=== PATIENT | male | born 1945 | race Caucasian/White ===

== ENCOUNTER 2016-09-27 18:24 | Emergency (ER) | payer MEDICARE ==
[2016-09-27] MEDS ORDERED: Sodium Chloride 0.9% 1,000 ML ONE ×2 (19:08→20:40)
[2016-09-27] MEDS ORDERED: HYDROcodone/Acetaminophen 5/325 mg Tablet ONE (19:15)
[2016-09-27 19:18] LABS: #Basophils 0.2 thou/uL (0.0-0.2); #Eosinphils 0.4 thou/uL (0.0-0.7); #Lymphocytes 2.6 thou/uL (1.20-3.40); #Neutrophils 11.6 thou/uL (1.40-6.50); %Basophils 1.1 % (0.0-1.0); %Eosinophils 2.3 % (0.0-10.0); %Lymphocytes 16.7 % (21.0-51.0); %Monocytes 6.1 % (0.0-10.0); Hematocrit 46.4 % (42.0-52.0); Mean Platelet Volume 8.9 fL (7.4-10.4); White Blood Cell (WBC) Count 15.7 thou/uL (4.8-10.8)
[2016-09-27 19:34] LABS: ALT (SGPT) 51 U/L (0-55); AST (SGOT) 28 U/L (5-34); Alkaline Phosphatase 131 U/L (40-150); Anion Gap 17 mmol/L (10-20); BUN (Urea Nitrogen) 30 mg/dL (8.4-25.7); Bilirubin, Total 1.6 mg/dL (0.2-1.2); Calc. Creatinine Clearance 0 mL/min (70-130); Calcium 9.3 mg/dL (7.8-10.44); Carbon Dioxide 25 mmol/L (23-31); Chloride 89 mmol/L (98-107); Estimated GFR-MDRD 49; Globulin 2.9 g/dL (2.4-3.5); Protein, Total 6.8 g/dL (5.8-8.1)
[2016-09-27] MEDS ORDERED: diphenhydrAMINE HCl 25 MG CAP ONE (20:10)
[2016-09-27] MEDS ORDERED: diphenhydrAMINE HCl 50 MG/ML 1 ML VIAL ONE (20:11)
--- NOTE | 2016-09-27 20:21 | RAD ---
FRONTAL VIEW CHEST 09/27/16 COMPARISON: 08/06/16 INDICATION: Weakness and nausea. FINDINGS: Chest is stable appearing to prior exam without new consolidation or effusion. IMPRESSION: Stable exam. POS: [facility]
--- NOTE | 2016-09-27 20:28 | CT ---
HEAD CT NONCONTRAST 09/27/16 COMPARISON: 08/06/16 INDICATION: Weakness and nausea. FINDINGS: There is no intracranial hemorrhage, midline shift, or ventriculomegaly. Minimal chronic microvascul ar ischemic disease is redemonstrated. Exam is stable appearing to 08/06/16. IMPRESSION: No acute intracranial abnormalities. POS: [facility]
--- NOTE | 2016-09-27 23:08 | ERRECORD ---
[facility] EMERGENCY RECORD HPI CVA (19:08 BPIC) NIHSS: CVA assessment findings: Level of consciousness: alert, keenly responsive (0), Questions: answers both questions correctly (0), Commands: performs both tasks correctly (0), Best gaze: normal (0), Visual: no visual loss (0), Facial palsy: normal symmetrical movement (0), Motor Left Arm: no drift, arm stays 90/45 degrees for full 10 seconds (0), Motor Right Arm: no drift, arm stays 90/45 degrees for full 10 seconds (0), Motor left leg: no drift, leg stays at 30 degrees for full five seconds (0), Motor right leg: no drift, leg stays at 30 degrees for full five seconds (0), Limb ataxia absent (0), Sensory: normal, no sensory loss (0), Best language: no aphasia; normal (0), Dysarthria: normal (0), Extinction and Inattention: normal (0), Total score 0. HPI WEAK-DIZZY (19:06 BPIC) CHIEF COMPLAINT: Patient presents for evaluation of weakness, Patient presents for evaluation of dizziness. HISTORIAN: History provided by patient, pt with history of Diabetes Insipidus who has been feeling weak and dizzy over the past few weeks. His states taht he has not been eating or drinking as much as usual and is on a salt restricted diet. Additionally, he was started back on his BP meds today and has had low bp throughout the day. because of this, he has had a hard time getting around the house, and he has had increase in his chronic back pain because he has not been given his regular [place]. He also states that his vision seemed darker than usual but was not blurry at all. ROS (19:10 BPIC) CONSTITUTIONAL: Negative constitutional review of systems, Historian denies chills, denies fever. EYES: Negative eye review of systems. ENT: Negative ears, nose, throat review of systems. CARDIOVASCULAR: Negative cardiovascular review of systems, Historian denies chest pain, denies palpitations. RESPIRATORY: Negative respiratory review of systems, Historian denies cough, denies shortness of breath. GI: Negative gastrointestinal review of systems, Historian denies abdominal pain, denies constipation, denies diarrhea. MUSCULOSKELETAL: Negative musculoskeletal review of systems. SKIN: Negative skin review of systems. NEUROLOGIC: Historian reports dizziness, denies focal weakness, denies sensory changes, denies speech changes. ENDOCRINE: Negative endocrine review of systems. HEMO/LYMPHATIC: Normal hematologic/lymphatic system review. PSYCHIATRIC: Negative psychiatric review of systems. NOTES: All other ROS is negative except as listed in HPI. PAST MEDICAL HISTORY &a-1R&a+25V*p+0X*a6641T*c202B*c15G*c2P*p-0X&a-25V&a+1R Name: Brady Silva : 1945 M71 MedRec: [id number] AcctNum: [id number] Prepared: Suni Sep 28, 2016 03:39 by Interface Page 1 of 6 pMD [facility] EMERGENCY RECORD MEDICAL HISTORY: Flu vaccine up to date, Tetanus immunization up to date, Pneumococcal vaccine up to date, Notes: A-FIB, LT AND RT FOOT FX, history of diabetes, Type II, includes history of hyperlipidemia, high cholesterol, history of hypertension, which has been treated, Patient is compliant, pulmonary disease, chronic obstructive pulmonary disease.STATES HAS GOUT. No past medical history. chronic pain, back injuries, empyema, dementia. (18:44 EPIE) MALE SURGICAL HISTORY: heart ablation, orthopedic surgery, RIGHT HAND AND LEFT FOOT, CERVICAL SPINE SX, LUMBAR SX, LT KNEE, RT SHOULDER SX x2, pacemaker LUNG SX. Left Shoulder surgery X 3. and left elbow. (18:44 EPIE) PSYCHIATRIC HISTORY: Dementia, depression. (18:44 EPIE) SOCIAL HISTORY: Patient drinks every day, more than 10 drinks per day, Alcohol history notes: quit more than 20 years ago, Patient denies drug use, Patient is a former tobacco user, smoked cigarettes, Patient quit smoking more than 10 years ago, Tobacco history notes: 3 pack a day smoker for 25-30 years. (18:44 EPIE) FAMILY HISTORY: Family history is non-contributory to this case. (18:44 EPIE) NOTES: I have reviewed and agree with the PMH/PSxH/FamHx/SocHx obtained by the nurse. (19:10 BPIC) KNOWN ALLERGIES allopurinol: Source: Patient alprazolam (Unconfirmed) amlodipine besylate (Unconfirmed) carisoprodol (Unconfirmed) Cephalexin Monohydrate (Unconfirmed) diazepam (Unconfirmed) haloperidol (Unconfirmed) haloperidol lactate (Unconfirmed) Keflex nefazodone HCl (Unconfirmed) NSAIDS (Non-Steroidal Anti-Inflamma (Unconfirmed) NSAIDS (Non-Steroidal Anti-Inflammatory Drug): - GI Bleeds quetiapine fumarate (Unconfirmed) risperidone (Unconfirmed) Sulindac (Unconfirmed) Valium Oral: - HALLUCINATIONS Xanax: - HALLUCINATIONS CURRENT MEDICATIONS PriLOSEC: CAPSULE,DELAYED RELEASE (ENTERIC COATED) : Strength - 40 mg : ORAL Patient Dose: 1 tab(s) Oral once a day. [facility] K-Dur: TABLET, EXT RELEASE, PARTICLES/CRYSTALS : Strength - 20 mEq : ORAL &a-1R&a+25V*p+0X*a6316S*c202B*c15G*c2P*p-0X&a-25V&a+1R Name: Brady Silva : 1945 M71 MedRec: [id number] AcctNum: [id number] Prepared: [facility] Sep 28, 2016 03:39 by Interface Page 2 of 6 pMD [facility] EMERGENCY RECORD Patient Dose: 20 mEq Oral once a day (in the morning). (19:21 [facility]) ferrous sulfate: TABLET : Strength - 325 mg (65 mg iron) : ORAL Patient Dose: UNK Oral 2 times a day. (19:22 [facility]) digoxin: TABLET : Strength - 250 mcg : ORAL Patient Dose: 0.25 mg Oral See Notes.Takes 1 tab on even days and 1/2 tab on odd days. (19:27 [facility]) fludrocortisone: TABLET : Strength - 0.1 mg : ORAL Patient Dose: 0.1 mg Oral once a day (in the morning). (19:28 [facility]) amLODIPine: TABLET : Strength - 5 mg : ORAL Patient Dose: 5 mg Oral once a day (in the morning).STOPED TAKING FOR APPROX 6 WEEKS DUE TO DI DX. STARTED AGAIN TODAY 09/27/16. (19:29 [facility]) colchicine: TABLET : Strength - 0.6 mg : ORAL Patient Dose: 1 tab(s) Oral once a day (in the morning). (19:29 [facility]) melatonin: CAPSULE : Strength - 10 mg : ORAL Patient Dose: 10 mg Oral once a day (at bedtime). (19:30 [facility]) Mirapex: TABLET : Strength - 1 mg : ORAL Patient Dose: 1 mg Oral once a day (at bedtime). (19:31 [facility]) lisinopril: TABLET : Strength - 40 mg : ORAL Patient Dose: 40 mg Oral once a day (in the morning).STOPED TAKING FOR APPROX 6 WEEKS DUE TO DI DX. STARTED AGAIN TODAY 09/27/16. (19:31 [facility]) meTOPROLOL succinate: TABLET, EXTENDED RELEASE 24 HR : Strength - 25 mg : ORAL Patient Dose: 25 mg Oral once a day (in the morning). (19:31 [facility]) hydrochlorothiazide: TABLET : Strength - 25 mg : ORAL Patient Dose: 25 mg Oral 2 times a day. (19:32 [facility]) Benadryl: CAPSULE : Strength - 25 mg : ORAL Patient Dose: 25 mg Oral once a day.AT BEDTIME PRN FOR ANXIETY AND SLEEP. (19:33 [facility]) latanoprost: DROPS : Strength - 0.005 % : OPHTHALMIC Patient Dose: 1 Drps Eyes Both once a day (at bedtime). (19:34 [facility]) &a-1R&a+25V*p+0X*o6338G*c202B*c15G*c2P*p-0X&a-25V&a+1R Name: Brady Silva : 1945 M71 MedRec: [id number] AcctNum: [id number] Prepared: Suni Sep 28, 2016 03:39 by Interface Page 3 of 6 pMD [facility] EMERGENCY RECORD Simbrinza: SUSPENSION, DROPS(FINAL DOSAGE FORM)(ML) : Strength - 1 %-0.2 % : OPHTHALMIC Patient Dose: 1 Drps Eyes Both once a day (at bedtime). (19:34 [facility]) FML Forte: SUSPENSION, DROPS(FINAL DOSAGE FORM)(ML) : Strength - 0.25 % : OPHTHALMIC Patient Dose: 1 Drps Eye Left 3 times a day.NEW PRESCRIPTION. TEMPORARY. STARTED 1 WEEK AGO. (19:35 [facility]) VITAL SIGNS VITAL SIGNS: BP: 114/65, Pulse: 86, Resp: 18 (Non-Labored), O2 sat: 98 on Room Air, Time: 09/27/2016 18:31. (18:31 EPIE) Temp: 97.6 (Oral), Time: 09/27/2016 18:41. (18:41 EPIE) BP: 121/69, Pulse: 89, Resp: 18, O2 sat: 98 on Room Air, Time: 09/27/2016 19:10. (19:10 [facility]) BP: 92/57, Pulse: 87, Resp: 18, Pain: 8, O2 sat: 98 on Room Air, Time: 09/27/2016 19:37. (19:37 [facility]) BP: 126/63 (Sitting), Pulse: 90, O2 sat: 100 on Room Air, Time: 09/27/2016 20:08. (20:08 [facility]) BP: 109/60, Pulse: 90, Resp: 16, O2 sat: 98 on Room Air, Time: 09/27/2016 20:21. (20:21 [facility]) BP: 119/27 (Sitting), Pulse: 87, Resp: 20, Pain: 8, O2 sat: 100 on Room Air, Time: 09/27/2016 20:32. (20:32 [facility]) BP: 105/55, Pulse: 90, Resp: 14, O2 sat: 98 on Room Air, Time: 09/27/2016 20:57. (20:57 [facility]) BP: 102/58, Pulse: 90, Resp: 14, O2 sat: 99 on Room Air, Time: 09/27/2016 21:00. (21:00 [facility]) BP: 113/61, Pulse: 84, Resp: 17, Pain: 7, O2 sat: 96 on Room Air, Time: 09/27/2016 21:10. (21:10 [facility]) PHYSICAL EXAM (19:10 BPIC) CONSTITUTIONAL: Vital signs reviewed, Patient appears non toxic, Patient alert and oriented to person, place and time, Pt is in no apparent distress. HEAD: Head exam included findings of head atraumatic, normocephalic. EYES: Eye exam included findings of eyelids normal to inspection, Pupils equally round and reactive to light, Extraocular muscles intact. ENT: ENT exam normal, Nose exam normal, no nasal deformity, no bleeding from nares, Pharynx exam normal, Mouth exam normal, mucous membranes moist. NECK: Neck exam included findings of normal range of motion, Trachea midline. RESPIRATORY CHEST: Respiratory and chest exam normal, Breath sounds clear, No wheezing, No rales, Chest exam included findings of chest movement symmetrical, Chest expansion equal, pacemaker to left chest. &a-1R&a+25V*p+0X*d8217S*c202B*c15G*c2P*p-0X&a-25V&a+1R Name: Brady Silva : 1945 M71 MedRec: [id number] AcctNum: [id number] Prepared: Suni Sep 28, 2016 03:39 by Interface Page 4 of 6 pMD [facility] EMERGENCY RECORD CARDIOVASCULAR: Cardiovascular assessment normal, Cardiovascular exam included findings of heart rate regular rate and rhythm, Heart sounds normal. ABDOMEN MALE: Abdominal exam included findings of abdomen nontender, Bowel sounds normal, no mass, no pulsatile masses, no peritoneal signs, no rigidity, no guarding, no rebound. BACK: Back exam included findings of normal inspection, range of motion normal, no costovertebral angle tenderness. UPPER EXTREMITY: Upper extremity exam included findings of inspection normal, Range of motion normal. LOWER EXTREMITY: Lower extremity exam included findings of inspection normal, Range of motion normal. NEURO: [place] coma scale 15, Neuro exam findings include patient oriented to person, place and time, Speech normal, no focal motor deficits, no focal sensory deficits. NIH 0. Needs assistance standing or walking. SKIN: Skin exam included findings of skin warm, dry, and normal in color. LYMPHATIC: Lymphatic exam normal. PSYCHIATRIC: Psychiatric exam included findings of patient oriented to person place and time, Normal affect. EKG INTERPRETATION (18:47 BPIC) 12 LEAD EKG INTERPRETATION: 12 lead EKG interpreted by Emergency Department Physician at time of study, 12 lead EKG shows normal sinus rhythm, Rate (beats per minute): 85, with no ectopics, Interpretation: normal EKG, Conduction normal, ST segments normal, T waves, Buhler normal, Clinical impression:, non-specific EKG. RADIOLOGYINTERPRETATION (19:56 BPIC) HEAD: Head CT negative, without contrast. CHEST: Chest films negative. MEDICATION ADMINISTRATION SUMMARY Drug Name: *Normal Saline, Dose Ordered: 100 mL/hr, Route: IV Fluid Infusion, Status: Given, Time: 20:40 09/27/2016, Drug Name: diphenhydrAMINE injection, Dose Ordered: 25 mg, Route: IV Push, Status: Given, Time: 20:12 09/27/2016, Drug Name: HYDROcodone-acetaminophen, Dose Ordered: 5/325 mg, Route: Oral, Status: Given, Time: 19:17 09/27/2016, Drug Name: sodium chloride 0.9 % intravenous, Dose Ordered: 1000 mL, Route: IV Fluid Infusion, Status: Given, Time: 19:12 09/27/2016, *Additional information available in notes, Detailed record available in Medication Service section. DOCTOR NOTES (SunSep 28, 2016 03:36 BPIC) TEXT: Diagnosis and plan have been discussed with the patient. The patient understands the treatment plan and all questions &a-1R&a+25V*p+0X*q2877Q*c202B*c15G*c2P*p-0X&a-25V&a+1R Name: Brady Silva : 1945 71 MedRec: [id number] AcctNum: [id number] Prepared: Suni Sep 28, 2016 03:39 by Interface Page 5 of 6 D [facility] EMERGENCY RECORD have been answered. A transfer will be done to a facility that has a higher level of care and additional splunk consultant capabilities. PROBLEM LIST No recorded problems DIAGNOSIS (20:11 BPIC) FINAL: PRIMARY: Hyponatremia, ADDITIONAL: Hypotension, Leukocytosis. PRESCRIPTION No recorded prescriptions DISPOSITION PATIENT: Disposition Type: Transfer, Disposition: Transfer to [facility], Condition: Guarded. (20:11 BPIC) Patient left the department. (21:51 [facility]) [place]: BPIC=MD Brittny, Tino DOTAMANNA=JUAN Sanchez, Gabe RODRIGUEZ=JUAN Kelly, Sole GOMEZ=JUAN Thurman, Cher &a-1R&a+25V*p+0X*u3068U*c202B*c15G*c2P*p-0X&a-25V&a+1R Name: Brady Silva : 1945 M71 MedRec: [id number] AcctNum: [id number] Prepared: Suni Sep 28, 2016 03:39 by Interface Page 6 of 6 pMD MTDD
--- NOTE | 2016-09-27 23:11 | PICIS ---
[facility] EMERGENCY RECORD TRIAGE (18:32 EPIE) TRIAGE NOTES: Pt reports weakness, nausea, feeling bad, low BP, and high glucose (257). (18:32 EPIE) PATIENT: NAME: Brady Silva, AGE: 71, GENDER: male, : Sun1945, TIME OF GREET: SunSep 27, 2016 18:25, PREFERRED LANGUAGE: [place], ETHNICITY: Not or , ECODE BILLING MAP: [facility], SSN: [id number], Zip Code: [address], KG WEIGHT: 77.11, PHONE: , , , PERSON ID: [id number], PCP: MD Austin Thomas. (18:32 EPIE) COMPLAINT: Weakness. (18:32 EPIE) ADMISSION: URGENCY: 2 Emergent, ADMISSION SOURCE: Home, TRANSPORT: CAR, BED: TRIAGE. (18:32 EPIE) TRIAGE SCREENING: Patient denies suicidal ideation, Patient denies presence of domestic violence. (18:44 EPIE) TREATMENTS IN PROGRESS: Treatments given Prehospital: none. (18:44 EPIE) PROVIDERS: TRIAGE NURSE: Sole Kelly RN. (18:32 EPIE) VITAL SIGNS: BP 114/65, Pulse 86, Resp 18, (Non-Labored), O2 Sat 98, on Room Air, Time 09/27/2016 18:31. (18:31 EPIE) PREVIOUS VISIT ALLERGIES: amLODIPine, Keflex, NSAIDS (Non-Steroidal Anti-Inflammatory Drug), Valium Oral, Xanax. (18:32 EPIE) amLODIPine, Keflex, NSAIDS (Non-Steroidal Anti-Inflammatory Drug), Valium Oral, Xanax. (18:44 EPIE) KNOWN ALLERGIES allopurinol: Source: Patient alprazolam (Unconfirmed) amlodipine besylate (Unconfirmed) carisoprodol (Unconfirmed) Cephalexin Monohydrate (Unconfirmed) diazepam (Unconfirmed) haloperidol (Unconfirmed) haloperidol lactate (Unconfirmed) Keflex nefazodone HCl (Unconfirmed) NSAIDS (Non-Steroidal Anti-Inflamma (Unconfirmed) NSAIDS (Non-Steroidal Anti-Inflammatory Drug): - GI Bleeds quetiapine fumarate (Unconfirmed) risperidone (Unconfirmed) Sulindac (Unconfirmed) Valium Oral: - HALLUCINATIONS Xanax: - HALLUCINATIONS CURRENT MEDICATIONS PriLOSEC: CAPSULE,DELAYED RELEASE (ENTERIC COATED) : Strength - 40 mg : ORAL Patient Dose: 1 tab(s) Oral once a day. (18:47 EPIE) K-Dur: &a-1R&a+25V*p+0X*i6582U*c202B*c15G*c2P*p-0X&a-25V&a+1R Name: Brady Silva : 1945 M71 MedRec: [id number] AcctNum: [id number] Prepared: Suni Sep 28, 2016 03:45 by Interface Page 1 of 14 pMD [facility] EMERGENCY RECORD TABLET, EXT RELEASE, PARTICLES/CRYSTALS : Strength - 20 mEq : ORAL Patient Dose: 20 mEq Oral once a day (in the morning). (19:21 [facility]) ferrous sulfate: TABLET : Strength - 325 mg (65 mg iron) : ORAL Patient Dose: UNK Oral 2 times a day. (19:22 [facility]) digoxin: TABLET : Strength - 250 mcg : ORAL Patient Dose: 0.25 mg Oral See Notes.Takes 1 tab on even days and 1/2 tab on odd days. (19:27 [facility]) fludrocortisone: TABLET : Strength - 0.1 mg : ORAL Patient Dose: 0.1 mg Oral once a day (in the morning). (19:28 [facility]) amLODIPine: TABLET : Strength - 5 mg : ORAL Patient Dose: 5 mg Oral once a day (in the morning).STOPED TAKING FOR APPROX 6 WEEKS DUE TO DI DX. STARTED AGAIN TODAY 09/27/16. (19:29 [facility]) colchicine: TABLET : Strength - 0.6 mg : ORAL Patient Dose: 1 tab(s) Oral once a day (in the morning). (19:29 [facility]) melatonin: CAPSULE : Strength - 10 mg : ORAL Patient Dose: 10 mg Oral once a day (at bedtime). (19:30 [facility]) Mirapex: TABLET : Strength - 1 mg : ORAL Patient Dose: 1 mg Oral once a day (at bedtime). (19:31 [facility]) lisinopril: TABLET : Strength - 40 mg : ORAL Patient Dose: 40 mg Oral once a day (in the morning).STOPED TAKING FOR APPROX 6 WEEKS DUE TO DI DX. STARTED AGAIN TODAY 09/27/16. (19:31 [facility]) meTOPROLOL succinate: TABLET, EXTENDED RELEASE 24 HR : Strength - 25 mg : ORAL Patient Dose: 25 mg Oral once a day (in the morning). (19:31 [facility]) hydrochlorothiazide: TABLET : Strength - 25 mg : ORAL Patient Dose: 25 mg Oral 2 times a day. (19:32 [facility]) Benadryl: CAPSULE : Strength - 25 mg : ORAL Patient Dose: 25 mg Oral once a day.AT BEDTIME PRN FOR ANXIETY AND SLEEP. (19:33 [facility]) latanoprost: DROPS : Strength - 0.005 % : OPHTHALMIC Patient Dose: 1 Drps Eyes Both once a day (at bedtime). &a-1R&a+25V*p+0X*g6523L*c202B*c15G*c2P*p-0X&a-25V&a+1R Name: Brady Silva : 1945 M71 MedRec: [id number] AcctNum: [id number] Prepared: Suni Sep 28, 2016 03:45 by Interface Page 2 of 14 pMD [facility] EMERGENCY RECORD (19:34 [facility]) Simbrinza: SUSPENSION, DROPS(FINAL DOSAGE FORM)(ML) : Strength - 1 %-0.2 % : OPHTHALMIC Patient Dose: 1 Drps Eyes Both once a day (at bedtime). (19:34 [facility]) FML Forte: SUSPENSION, DROPS(FINAL DOSAGE FORM)(ML) : Strength - 0.25 % : OPHTHALMIC Patient Dose: 1 Drps Eye Left 3 times a day.NEW PRESCRIPTION. TEMPORARY. STARTED 1 WEEK AGO. (19:35 [facility]) VITAL SIGNS VITAL SIGNS: BP: 114/65, Pulse: 86, Resp: 18 (Non-Labored), O2 sat: 98 on Room Air, Time: 09/27/2016 18:31. (18:31 EPIE) Temp: 97.6 (Oral), Time: 09/27/2016 18:41. (18:41 EPIE) BP: 121/69, Pulse: 89, Resp: 18, O2 sat: 98 on Room Air, Time: 09/27/2016 19:10. (19:10 DOEC) BP: 92/57, Pulse: 87, Resp: 18, Pain: 8, O2 sat: 98 on Room Air, Time: 09/27/2016 19:37. (19:37 DOEC) BP: 126/63 (Sitting), Pulse: 90, O2 sat: 100 on Room Air, Time: 09/27/2016 20:08. (20:08 [facility]) BP: 109/60, Pulse: 90, Resp: 16, O2 sat: 98 on Room Air, Time: 09/27/2016 20:21. (20:21 [facility]) BP: 119/27 (Sitting), Pulse: 87, Resp: 20, Pain: 8, O2 sat: 100 on Room Air, Time: 09/27/2016 20:32. (20:32 DOEC) BP: 105/55, Pulse: 90, Resp: 14, O2 sat: 98 on Room Air, Time: 09/27/2016 20:57. (20:57 DOEC) BP: 102/58, Pulse: 90, Resp: 14, O2 sat: 99 on Room Air, Time: 09/27/2016 21:00. (21:00 DOEC) BP: 113/61, Pulse: 84, Resp: 17, Pain: 7, O2 sat: 96 on Room Air, Time: 09/27/2016 21:10. (21:10 DOEC) NURSING ASSESSMENT: FALL RISK (19:44 DOEC) FALL RISK: Fall risk assessment findings include: History of falls (5), Use of level of consciousness altering agents with mentation or cognitive changes (3), Change in blood pressure (1), Total score 9. NURSING ASSESSMENT: HEAD-TO-TOE (18:35 EPIE) CONSTITUTIONAL: Patient arrives, via hospital wheelchair, Unsteady gait, Assistance to cart, History obtained from patient, Patient appears, generally ill, uncomfortable, Patient cooperative, Patient alert, Oriented to person, place and time, Skin warm, Skin dry, Skin normal in color, Mucous membranes pink, Mucous membranes moist, Patient is well-groomed, Pt reports weakness, nausea, feeling bad, low BP (systolic in the 80s), and high glucose (257). Pt also restated his BP medication today. PAIN: aching pain, chronic back pain, on a scale &a-1R&a+25V*p+0X*b4716R*c202B*c15G*c2P*p-0X&a-25V&a+1R Name: Brady Silva : 1945 M71 MedRec: [id number] AcctNum: [id number] Prepared: Suni Sep 28, 2016 03:45 by Interface Page 3 of 14 pMD [facility] EMERGENCY RECORD 0-10 patient rates pain as 8, Pain exacerbated by nothing, Nothing has been tried to alleviate the pain. SKIN: Skin assessment findings include skin warm, Skin dry, Skin normal in color. NEURO: Able to close eyes, Face symmetrical, Speech normal, GCS:, Eye opening: (4) - Spontaneous, Verbal: (5) - Oriented/conversive, Motor: (6) - Obeys commands/Spontaneous, GCS Total: 15. EYES: Eye assessment findings include orbits normal, Eye lids normal, Conjunctiva normal, Sclera normal, Cornea clear, Iris normal, Pupils equally round and reactive to light, Notes: Pt states that he has been complaining of it being dark. RESPIRATORY/CHEST: Breath sounds clear, Respiratory assessment findings include respiratory effort easy, Respirations regular, Conversing normally, Neck and chest exam findings include trachea midline, Chest expansion equal, Chest movement symmetrical. CARDIOVASCULAR: Heart sounds normal, S1, S2, Associated with weakness. ABDOMEN: Abdomen assessment findings include abdomen symmetrical, Abdomen soft, Associated with nausea, no associated vomiting, no associated diarrhea. GENITOURINARY MALE: no associated urinary complaints. NURSING PROCEDURE: BEDSIDE SIRS TESTING (19:44 DOEC) SCORES: Heart Rate 55-109 (0), Temp range 96.8-101.1 (0), respiratory rate 12-24 (0), Latest WBC 15-19.9 (1), Mental Status altered: no (0), Total SIRS Score 1, Yes, Infection or Suspected Infection. NURSING PROCEDURE: WOOL FLEECE SORTER (18:33 EPIE) WOOL FLEECE SORTER: Patient placed on floor waxer, Patient placed on non-invasive blood pressure monitor, with disposable blood pressure cuff applied, Patient placed on continuous pulse oximetry, Adult/pediatric oxisensor applied. FOLLOW-UP: After procedure, alarms set and on, After procedure, patient tolerating monitoring. NURSING PROCEDURE: EKG CHART (18:32 MSPE) EKG: EKG indicated for weakness; "low blood pressure", 12 lead EKG performed on the left chest. FOLLOW-UP: After procedure, EKG for interpretation given to Dr. Mart. NURSING PROCEDURE: IV IV SITE 1: IV established, to the right antecubital, using a 20 gauge catheter, in one attempt, IV site prepped with chloroprep, Saline lock established, Flushed with normal saline (mls): 10, Labs drawn at time of placement, labeled in the presence of the patient and sent to lab, Notes: IV started by Melody MARTINEZ. (18:39 EPIE) IV therapy indicated for hydration, IV therapy indicated for medication &a-1R&a+25V*p+0X*o6686G*c202B*c15G*c2P*p-0X&a-25V&a+1R Name: Brady Silva : 1945 M71 MedRec: [id number] AcctNum: [id number] Prepared: [facility] Sep 28, 2016 03:45 by Interface Page 4 of 14 D [facility] EMERGENCY RECORD administration, IV established, to the right antecubital, using a 20 gauge catheter, in one attempt, IV site prepped with chloraprep, Saline lock established, Flushed with normal saline (mls): 10, Labs drawn at time of placement, labeled in the presence of the patient and sent to lab. (18:38 MSPE) FOLLOW-UP SITE 1: After procedure, no drainage at IV site, After procedure, no swelling at IV site, After procedure, no redness at IV site. (18:39 EPIE) NURSING PROCEDURE: NURSE NOTES NURSES NOTES: Notes: Report received from JUAN Whipple. Pt RR even and unlabored on RA, NAD. Pt assisted up in bed to position of comfort. at bedside. Awaiting to go to CT. Denies any other needs, and this RN assuming care now. (19:10 DOEC) Notes: Pt back from CT. Pt assisted up in bed to position of comfort. Cher, RN at bedside reconciling home medication list with pt's . RR even and unlabored on RA. Pt denies any other needs at this time. (19:32 DOEC) Notes: Pt assisted to sitting in wheelchair because he can't get comfortable in bed due to chronic back pain. Pt sitting in w/c and remains on monitors, IV fluids running through pump. remains at bedside. Pt RR even and unlabored on RA, NAD. (19:52 DOEC) Patient re-evaluated by physician. (19:59 DOEC) NURSING PROCEDURE: TRANSFER (21:36 DOEC) TRANSFER: Reason for transfer patient request, Reason for transfer need for specialized care, Diagnosis: HYPONATREMIA, HYPOTENSION, LEUKOCYTOSIS, Accepting institution: [facility], Accepting physician: SPARKLE, Referring physician: ZEB, Transported by non-urgent ambulance, accompanied by emergency medical services personnel, Report called to receiving facility, JUAN RIOS, Provided opportunity to answer questions, Bed assigned ER/ER, Summary of Care printed, Copy of patient record prepared for receiving facility, Copy of diagnostic studies, Status of patient's valuables documented on chart, Patient consent for transfer signed. BELONGINGS: Belongings sent home with family member, Valuables sent home with family, Notes: PT ON EMS STRETCHER UPON DEPARTURE TO DEPT. PT BELONGINGS WITH . PT IN NAD, VSS. EQUIPMENT WITH PATIENT: Equipment with patient at time of transfer IV pump, Saline lock intact and patent at time of transfer, Notes: IVF 100ML/HR. NURSING PROCEDURE: TRANSPORT TO TESTS PATIENT IDENTIFIER: Patient actively involved in identification process, Patient's identity verified by patient stating name, Patient's identity verified by patient stating date. (19:17 DOEC) TRANSPORT TO TESTS: Transport indicated to facilitate diagnosis, Patient transported to CT scan, via cart, Accompanied by x-ray safety relief valve technician. (19:17 DOEC) &a-1R&a+25V*p+0X*t6766P*c202B*c15G*c2P*p-0X&a-25V&a+1R Name: Brady Silva : 1945 M71 MedRec: [id number] AcctNum: [id number] Prepared: Suni Sep 28, 2016 03:45 by Interface Page 5 of 14 pMD [facility] EMERGENCY RECORD FOLLOW-UP: After procedure, patient returned to emergency department. (19:31 DOEC) ORDER DETAILS Order Name: B type Natriuretic Peptide, Status: Active, Time: 19:04 09/27/2016, User: BPIC, - Ordered for: MD Mart Bryan, - Entered by: MD Mart Bryan - [facility] Sep 27, 2016 19:04, - Quantity: 1, Order Name: WOOL FLEECE SORTER ED, Status: Done, Time: 18:43 09/27/2016, User: MSPE, - Ordered for: MD Mart Bryan, - Entered by: JUAN Parrish, Melody - [facility] Sep 27, 2016 18:43, - Quantity: 1, Order Name: Cardiac Profile w/CKMB & Troponin - I, Status: Active, Time: 19:04 09/27/2016, User: BPIC, - Ordered for: MD Mart Bryan, - Entered by: MD Mart Bryan - [facility] Sep 27, 2016 19:04, - Quantity: 1, Order Name: CBC with Differential, Status: Active, Time: 19:04 09/27/2016, User: BPIC, - Ordered for: MD Mart Bryan, - Entered by: MD Mart Bryan - SunSep 27, 2016 19:04, - Quantity: 1, Order Name: Comprehensive Metabolic Panel, Status: Active, Time: 19:04 09/27/2016, User: BPIC, - Ordered for: MD Mart Bryan, - Entered by: MD Mart Bryan - [facility] Sep 27, 2016 19:04, - Quantity: 1, Order Name: CT Brain WO Con, Status: Active, Time: 19:04 09/27/2016, User: BPIC, - Ordered for: MD Mart Bryan, - Entered by: MD Mart Bryan - [facility] Sep 27, 2016 19:04, - Quantity: 1, Order Name: EKG 12 Lead in Emergency Room, Status: Active, Time: 18:43 09/27/2016, User: MSPE, - Ordered for: MD Mart Bryan, - Entered by: JUAN Parrish, Melody - [facility] Sep 27, 2016 18:43, - Quantity: 1, Order Name: ERRT Pulse Oximeter ER, Status: Active, Time: 18:43 09/27/2016, User: ISI, - Ordered for: MD Mart Bryan, - Entered by: JUAN Parrish, Melody [facility] Sep 27, 2016 18:43, - Quantity: 1, Order Name: SALINE LOCK, Status: Done, Time: 18:43 09/27/2016, User: ISI, - Ordered for: MD Mart Bryan, - Entered by: JUAN Parrish, Melody [facility] Sep 27, 2016 18:43, - Quantity: 1, &a-1R&a+25V*p+0X*s4335I*c202B*c15G*c2P*p-0X&a-25V&a+1R Name: Brady Silva : 1945 M71 MedRec: [id number] AcctNum: [id number] Prepared: [facility] Sep 28, 2016 03:45 by Interface Page 6 of 14 pMD [facility] EMERGENCY RECORD Order Name: Urinalysis w/ Rflx Microscopic, Status: Active, Time: 19:04 09/27/2016, User: BPIC, - Ordered for: MD Mart Bryan, - Entered by: MD Mart Bryan - [facility] Sep 27, 2016 19:04, - Quantity: 1, Order Name: XR Chest 1 View Portable, Status: Active, Time: 19:04 09/27/2016, User: BPIC, - Ordered for: MD Mart Bryan, - Entered by: MD Mart Bryan - [facility] Sep 27, 2016 19:04, - Quantity: 1. MEDICATION ADMINISTRATION SUMMARY Drug Name: *Normal Saline, Dose Ordered: 100 mL/hr, Route: IV Fluid Infusion, Status: Given, Time: 20:40 09/27/2016, Drug Name: diphenhydrAMINE injection, Dose Ordered: 25 mg, Route: IV Push, Status: Given, Time: 20:12 09/27/2016, Drug Name: HYDROcodone-acetaminophen, Dose Ordered: 5/325 mg, Route: Oral, Status: Given, Time: 19:17 09/27/2016, Drug Name: sodium chloride 0.9 % intravenous, Dose Ordered: 1000 mL, Route: IV Fluid Infusion, Status: Given, Time: 19:12 09/27/2016, *Additional information available in notes, Detailed record available in Medication Service section. MEDICATION SERVICE diphenhydrAMINE injection: Order: diphenhydrAMINE injection (diphenhydramine HCl) - Dose: 25 mg : IV Push Ordered by: Tino Mart MD Entered by: Tino Mart MD SunSep 27, 2016 20:09 , Acknowledged by: Gabe Sanchez RN SunSep 27, 2016 20:10 Documented as given by: Gabe Sanchez RN SunSep 27, 2016 20:12 Patient, Medication, Dose, Route and Time verified prior to administration. Amount given: 25mg, IV SITE #1 IVP, initial medication, Slowly, Awake and alert- acceptable, Connections checked prior to administration, Line traced prior to administration, Catheter placement confirmed via flush prior to administration, IV site without signs or symptoms of infiltration during medication administration, No swelling during administration, No drainage during administration, IV flushed after administration, Correct patient, time, route, dose and medication confirmed prior to administration, Patient advised of actions and side-effects prior to administration, Allergies confirmed and medications reviewed prior to administration, Patient tolerated procedure well, Administered by JUAN OLVERA, Patient in position of comfort, Side rails up, Cart in lowest position, Family at bedside, Call light in reach. HYDROcodone-acetaminophen: Order: HYDROcodone-acetaminophen (hydrocodone bitartrate/acetaminophen) - Dose: 5/325 mg : Oral Schedule: Now &a-1R&a+25V*p+0X*f3124M*c202B*c15G*c2P*p-0X&a-25V&a+1R Name: Brady Silva : 1945 M71 MedRec: [id number] AcctNum: [id number] Prepared: SunSep 28, 2016 03:45 by Interface Page 7 of 14 pMD [facility] EMERGENCY RECORD Ordered by: Tino Mart MD Entered by: Tino Mart MD SunSep 27, 2016 19:06 , Acknowledged by: Gabe Sanchez RN SunSep 27, 2016 19:15 Documented as given by: Gabe Sanchez RN SunSep 27, 2016 19:17 Patient, Medication, Dose, Route and Time verified prior to administration. Amount given: 1 TAB, Site: Medication administered P.O., Patient appears Awake and alert- acceptable, Correct patient, time, route, dose and medication confirmed prior to administration, Patient advised of actions and side-effects prior to administration, Allergies confirmed and medications reviewed prior to administration, Patient tolerated procedure well, Administered by JUAN OLVERA, Patient in position of comfort, Side rails up, Cart in lowest position, Family at bedside, Call light in reach. Normal Saline: Order: Normal Saline (0.9 % sodium chloride) - Dose: 100 mL/hr : IV Fluid Infusion Schedule: Now Notes: Read back and verified, Verbal Order Ordered by: Tino Mart MD Entered by: Gabe Sanchez RN SunSep 27, 2016 20:41 Documented as given by: Gabe Sanchez RN SunSep 27, 2016 20:40 Patient, Medication, Dose, Route and Time verified prior to administration. Amount given: 100ml/hr, IV SITE #1 IV fluids established for hydration, IV SITE #1 into right antecubital, via primary tubing, IV SITE #1 on IV pump, Awake and alert- acceptable, Connections checked prior to administration, Line traced prior to administration, Catheter placement confirmed via flush prior to administration, IV site without signs or symptoms of infiltration during medication administration, No swelling during administration, No drainage during administration, IV flushed after administration, Correct patient, time, route, dose and medication confirmed prior to administration, Patient advised of actions and side-effects prior to administration, Allergies confirmed and medications reviewed prior to administration, Patient tolerated procedure well, Administered by JUAN OLVERA, Patient in position of comfort, Side rails up, Cart in lowest position, Family at bedside, Call light in reach. : Follow Up : Response assessment performed, No signs or symptoms of allergic reaction noted, _IV SITE #1:_, IV fluid infusion continued upon transfer from emergency department, on SunSep 27, 2016 21:36, ., Total amount infused: 100ml. (21:36 DOEC) sodium chloride 0.9 % intravenous: Order: sodium chloride 0.9 % intravenous (0.9 % sodium chloride) - Dose: 1000 mL : IV Fluid Infusion Schedule: Bolus Ordered by: Tino Mart MD Entered by: Tino Mart MD SunSep 27, 2016 19:05 Documented as given by: Gabe Sanchez RN SunSep 27, 2016 19:12 Patient, Medication, Dose, Route and Time verified prior to administration. &a-1R&a+25V*p+0X*n1635N*c202B*c15G*c2P*p-0X&a-25V&a+1R Name: Brady Silva : 1945 M71 MedRec: [id number] AcctNum: [id number] Prepared: [facility] Sep 28, 2016 03:45 by Interface Page 8 of 14 pMD [facility] EMERGENCY RECORD Amount given: 1000ml, IV SITE #1 IV fluids established for hydration, IV SITE #1 into right antecubital, via primary tubing, IV SITE #1 on IV pump, Awake and alert- acceptable, Connections checked prior to administration, Line traced prior to administration, Catheter placement confirmed via flush prior to administration, IV site without signs or symptoms of infiltration during medication administration, No swelling during administration, No drainage during administration, IV flushed after administration, Correct patient, time, route, dose and medication confirmed prior to administration, Patient advised of actions and side-effects prior to administration, Allergies confirmed and medications reviewed prior to administration, Patient tolerated procedure well, Administered by JUAN OLVERA, Patient in position of comfort, Side rails up, Cart in lowest position, Family at bedside, Call light in reach. : Follow Up : _IV SITE #1:_, IV fluid infusion discontinued, on SunSep 27, 2016 20:33, Total fluid hydration time IV site 1 1 hour, 25 minutes, ., Total amount infused: 1000ML, IV Line flushed after administration, Advised not to ambulate without assistance, Patient in position of comfort, Side rails up, Cart in lowest position, Family at bedside, Call light in reach. (20:40 DOEC) HPI CVA (19:08 BPIC) NIHSS: CVA assessment findings: Level of consciousness: alert, keenly responsive (0), Questions: answers both questions correctly (0), Commands: performs both tasks correctly (0), Best gaze: normal (0), Visual: no visual loss (0), Facial palsy: normal symmetrical movement (0), Motor Left Arm: no drift, arm stays 90/45 degrees for full 10 seconds (0), Motor Right Arm: no drift, arm stays 90/45 degrees for full 10 seconds (0), Motor left leg: no drift, leg stays at 30 degrees for full five seconds (0), Motor right leg: no drift, leg stays at 30 degrees for full five seconds (0), Limb ataxia absent (0), Sensory: normal, no sensory loss (0), Best language: no aphasia; normal (0), Dysarthria: normal (0), Extinction and Inattention: normal (0), Total score 0. HPI WEAK-DIZZY (19:06 BPIC) CHIEF COMPLAINT: Patient presents for evaluation of weakness, Patient presents for evaluation of dizziness. HISTORIAN: History provided by patient, pt with history of Diabetes Insipidus who has been feeling weak and dizzy over the past few weeks. His states taht he has not been eating or drinking as much as usual and is on a salt restricted diet. Additionally, he was started back on his BP meds today and has had low bp throughout the day. because of this, he has had a hard time getting around the house, and he has had increase in his chronic back pain because he has not been given his regular [place]. He also states that his vision seemed darker than usual but was not blurry at all. ROS (19:10 BPIC) &a-1R&a+25V*p+0X*l4315F*c202B*c15G*c2P*p-0X&a-25V&a+1R Name: Brady Silva : 1945 M71 MedRec: [id number] AcctNum: [id number] Prepared: Suni Sep 28, 2016 03:45 by Interface Page 9 of 14 pMD [facility] EMERGENCY RECORD CONSTITUTIONAL: Negative constitutional review of systems, Historian denies chills, denies fever. EYES: Negative eye review of systems. ENT: Negative ears, nose, throat review of systems. CARDIOVASCULAR: Negative cardiovascular review of systems, Historian denies chest pain, denies palpitations. RESPIRATORY: Negative respiratory review of systems, Historian denies cough, denies shortness of breath. GI: Negative gastrointestinal review of systems, Historian denies abdominal pain, denies constipation, denies diarrhea. MUSCULOSKELETAL: Negative musculoskeletal review of systems. SKIN: Negative skin review of systems. NEUROLOGIC: Historian reports dizziness, denies focal weakness, denies sensory changes, denies speech changes. ENDOCRINE: Negative endocrine review of systems. HEMO/LYMPHATIC: Normal hematologic/lymphatic system review. PSYCHIATRIC: Negative psychiatric review of systems. NOTES: All other ROS is negative except as listed in HPI. PAST MEDICAL HISTORY MEDICAL HISTORY: Flu vaccine up to date, Tetanus immunization up to date, Pneumococcal vaccine up to date, Notes: A-FIB, LT AND RT FOOT FX, history of diabetes, Type II, includes history of hyperlipidemia, high cholesterol, history of hypertension, which has been treated, Patient is compliant, pulmonary disease, chronic obstructive pulmonary disease.STATES HAS GOUT. No past medical history. chronic pain, back injuries, empyema, dementia. (18:44 EPIE) MALE SURGICAL HISTORY: heart ablation, orthopedic surgery, RIGHT HAND AND LEFT FOOT, CERVICAL SPINE SX, LUMBAR SX, LT KNEE, RT SHOULDER SX x2, pacemaker LUNG SX. Left Shoulder surgery X 3. and left elbow. (18:44 EPIE) PSYCHIATRIC HISTORY: Dementia, depression. (18:44 EPIE) SOCIAL HISTORY: Patient drinks every day, more than 10 drinks per day, Alcohol history notes: quit more than 20 years ago, Patient denies drug use, Patient is a former tobacco user, smoked cigarettes, Patient quit smoking more than 10 years ago, Tobacco history notes: 3 pack a day smoker for 25-30 years. (18:44 EPIE) FAMILY HISTORY: Family history is non-contributory to this case. (18:44 EPIE) NOTES: I have reviewed and agree with the PMH/PSxH/FamHx/SocHx obtained by the nurse. (19:10 BPIC) PHYSICAL EXAM (19:10 BPIC) CONSTITUTIONAL: Vital signs reviewed, Patient appears non toxic, Patient alert and oriented to person, place and time, Pt is in no apparent distress. &a-1R&a+25V*p+0X*q7552E*c202B*c15G*c2P*p-0X&a-25V&a+1R Name: Brady Silva : 1945 M71 MedRec: [id number] AcctNum: [id number] Prepared: Suni Sep 28, 2016 03:45 by Interface Page 10 of 14 [facility] EMERGENCY RECORD HEAD: Head exam included findings of head atraumatic, normocephalic. EYES: Eye exam included findings of eyelids normal to inspection, Pupils equally round and reactive to light, Extraocular muscles intact. ENT: ENT exam normal, Nose exam normal, no nasal deformity, no bleeding from nares, Pharynx exam normal, Mouth exam normal, mucous membranes moist. NECK: Neck exam included findings of normal range of motion, Trachea midline. RESPIRATORY CHEST: Respiratory and chest exam normal, Breath sounds clear, No wheezing, No rales, Chest exam included findings of chest movement symmetrical, Chest expansion equal, pacemaker to left chest. CARDIOVASCULAR: Cardiovascular assessment normal, Cardiovascular exam included findings of heart rate regular rate and rhythm, Heart sounds normal. ABDOMEN MALE: Abdominal exam included findings of abdomen nontender, Bowel sounds normal, no mass, no pulsatile masses, no peritoneal signs, no rigidity, no guarding, no rebound. BACK: Back exam included findings of normal inspection, range of motion normal, no costovertebral angle tenderness. UPPER EXTREMITY: Upper extremity exam included findings of inspection normal, Range of motion normal. LOWER EXTREMITY: Lower extremity exam included findings of inspection normal, Range of motion normal. NEURO: [place] coma scale 15, Neuro exam findings include patient oriented to person, place and time, Speech normal, no focal motor deficits, no focal sensory deficits. NIH 0. Needs assistance standing or walking. SKIN: Skin exam included findings of skin warm, dry, and normal in color. LYMPHATIC: Lymphatic exam normal. PSYCHIATRIC: Psychiatric exam included findings of patient oriented to person place and time, Normal affect. EVENTS TRANSFER: Triage to Emergency Triage. (SunSep 27, 2016 18:32 EPIE) Emergency Triage to Emergency Room -04. (18:32 EPIE) Removed from Emergency Emergency Room -04. (21:51 DOEC) RADIOLOGYINTERPRETATION (19:56 BPIC) HEAD: Head CT negative, without contrast. CHEST: Chest films negative. EKG INTERPRETATION (18:47 BPIC) 12 LEAD EKG INTERPRETATION: 12 lead EKG interpreted by Emergency Department Physician at time of study, 12 lead EKG shows normal sinus rhythm, Rate (beats per minute): 85, with no ectopics, &a-1R&a+25V*p+0X*q2172N*c202B*c15G*c2P*p-0X&a-25V&a+1R Name: Brady Silva : 1945 M71 MedRec: [id number] AcctNum: [id number] Prepared: SunSep 28, 2016 03:45 by Interface Page 11 of 14 pMD [facility] EMERGENCY RECORD Interpretation: normal EKG, Conduction normal, ST segments normal, T waves, [place] normal, Clinical impression:, non-specific EKG. DOCTOR NOTES (SunSep 28, 2016 03:36 BPIC) TEXT: Diagnosis and plan have been discussed with the patient. The patient understands the treatment plan and all questions have been answered. A transfer will be done to a facility that has a higher level of care and additional programmer analyst consultant capabilities. PROBLEM LIST No recorded problems DIAGNOSIS (20:11 BPIC) FINAL: PRIMARY: Hyponatremia, ADDITIONAL: Hypotension, Leukocytosis. DISPOSITION PATIENT: Disposition Type: Transfer, Disposition: Transfer to [facility], Condition: Guarded. (20:11 BPIC) Patient left the department. (21:51 DOEC) PRESCRIPTION No recorded prescriptions IMAGING *EKG: Image captured from scanner. (20:09 EPIE) *MEMORANDUM OF TRANSFER: Image captured from scanner. (20:16 EPIE) TRANSFER CONSENT: Image captured from scanner. (20:17 EPIE) *SUPPLY CHARGE SHEET: Image captured from scanner. (21:47 [facility]) ADMIN DIGITAL SIGNATURE: JUAN Sanchez Devon. (21:52 DOEC) JUAN Sanchez Devon. (21:52 DOEC) MD Mart Bryan. (SunSep 28, 2016 03:36 BPIC) MD Mart Bryan. (SunSep 28, 2016 03:36 BPIC) RESULTS LABORATORY: CBC with Differential Collection DT: SunSep 27, 2016 19:17, *White Blood Cell (WBC) Count 15.7 - H thou/uL, Range (4.8-10.8), Red Blood Cell (RBC) Count 5.30 mill/uL, Range (4.70-6.10), Hemoglobin 15.7 g/dL, Range (14.0-18.0), Hematocrit 46.4 %, Range (42.0-52.0), Mean Corpuscular Volume 87.5 fl, Range (80.0-94.0), Mean Corpuscular Hemoglobin 29.6 pg, Range (27.0-31.0), Mean Corpuscular HGB CONC 33.8 g/dL, Range (32.0-36.0), RBC Distribution Width 12.9 %, Range (11.5-14.5), &a-1R&a+25V*p+0X*q7485A*c202B*c15G*c2P*p-0X&a-25V&a+1R Name: Brady Silva : 1945 M71 MedRec: [id number] AcctNum: [id number] Prepared: SunSep 28, 2016 03:45 by Interface Page 12 of 14 pMD [facility] EMERGENCY RECORD Platelet Count 218 thou/uL, Range (130-400), Mean Platelet Volume 8.9 fL, Range (7.4-10.4), %Neutrophils 73.9 %, Range (42.0-75.0), *%Lymphocytes 16.7 - L %, Range (21.0-51.0), %Monocytes 6.1 %, Range (0.0-10.0), %Eosinophils 2.3 %, Range (0.0-10.0), *%Basophils 1.1 - H %, Range (0.0-1.0), *#Neutrophils 11.6 - H thou/uL, Range (1.40-6.50), #Lymphocytes 2.6 thou/uL, Range (1.20-3.40), *#Monocytes 1.0 - H thou/uL, Range (0.11-0.59), #Eosinphils 0.4 thou/uL, Range (0.0-0.7), #Basophils 0.2 thou/uL, Range (0.0-0.2). (19:30 BPIC) Comprehensive Metabolic Panel Collection DT: SunSep 27, 2016 19:17, *Sodium 126 - L mmol/L, Range (136-145), Potassium 4.5 mmol/L, Range (3.5-5.1), *Chloride 89 - L mmol/L, Range (98-107), Carbon Dioxide 25 mmol/L, Range (23-31), Anion Gap 17 mmol/L, Range (10-20), *BUN (Urea Nitrogen) 30 - H mg/dL, Range (8.4-25.7), *Creatinine 1.42 - H mg/dL, Range (0.7-1.3), Estimated GFR-MDRD 49 , Reference Range for Estimated GFR: Greater than 90, mL/min/1.73 m2 NOTE: The MDRD equation has not been validated for use, with the elderly (over 70 years of age), women, patients with, serious comorbid condition or persons with extremes of body size, muscle, mass, or nutritional status. , *Glucose 175 - H mg/dL, Range (83-110), Calcium 9.3 mg/dL, Range (7.8-10.44), *Bilirubin, Total 1.6 - H mg/dL, Range (0.2-1.2), Protein, Total 6.8 g/dL, Range (5.8-8.1), NOTE: Plasma values are generally 0.3 to 0.5 g/dL higher than serum values, due to the presence of fibrinogen. , Albumin 3.9 g/dL, Range (3.4-4.8), Globulin 2.9 g/dL, Range (2.4-3.5), Alb/Glob Ratio 1.3 g/dL, Range (1.2-2.2), Alkaline Phosphatase 131 U/L, Range (40-150), AST (SGOT) 28 U/L, Range (5-34), ALT (SGPT) 51 U/L, Range (0-55). (19:39 BPIC) Cardiac Profile w/CKMB & TropI Collection DT: SunSep 27, 2016 19:17, CKMB 4.6 ng/mL, Range (0-6.6), *Troponin I 0.040 - H ng/mL, Range (< 0.028), Reference Range , 0.00 - 0.028 ng/mL Negative 0.029 - 0.29 ng/mL , Indeterminate Greater or Equal to 0.3 ng/mL Strongly suggests CA , . (19:49 BPIC) &a-1R&a+25V*p+0X*x9510H*c202B*c15G*c2P*p-0X&a-25V&a+1R Name: Brady Silva : 1945 M71 MedRec: [id number] AcctNum: [id number] Prepared: SunSep 28, 2016 03:45 by Interface Page 13 of 14 pMD [facility] EMERGENCY RECORD B type Natriuretic Peptide Collection DT: SunSep 27, 2016 19:17, B type Natriuretic Peptide 21.6 pg/mL, Range (0-100). (19:56 BPIC) [place]: BPIC=MD Zeb, Tino DOTAMANNA=JUAN Sanchez, Gabe EPIE=JUAN Kelly, Sole LKRC=JUAN Thurman, Cher MSPE=JUAN Parrish, Melody &a-1R&a+25V*p+0X*z8612Y*c202B*c15G*c2P*p-0X&a-25V&a+1R Name: Brady Silva : 1945 M71 MedRec: [id number] AcctNum: [id number] Prepared: SunSep 28, 2016 03:45 by Interface Page 14 of 14 pMD MTDD
== END 2016-09-27 21:51 | disposition short-term general hospital (02) ==
LOC: NAV ERS 18:24
DX: E87.1 Hypo-osmolality and hyponatremia (principal); I95.9 Hypotension, unspecified; D72.829 Elevated white blood cell count, unspecified; E11.9 Type 2 diabetes mellitus without complications; E78.5 Hyperlipidemia, unspecified; J45.909 Unspecified asthma, uncomplicated; Z87.891 Personal history of nicotine dependence
CPT/HCPCS: 70450; 71010; 80053; 82553; 83880; 84484; 85025; 93005; 94760; 96361; 96374; J1200; J7050

== ENCOUNTER 2016-10-19 11:29 | Outpatient (CLI) | payer MEDICARE ==
[2016-10-19 13:35] LABS: Digoxin 0.87 ng/mL (0.8-2.0)
== END 2016-10-19 11:30 | disposition home or self-care (01) ==
LOC: NAV LABSP 11:29
PROVIDERS: ATTEND Family Medicine
DX: I50.9 Heart failure, unspecified (principal)
CPT/HCPCS: 80162

== ENCOUNTER 2016-11-10 11:58 | Emergency (ER) | payer MEDICARE ==
--- NOTE | 2016-11-10 12:47 | RAD ---
EXAM: CHEST 1 VIEW: HISTORY: Weight loss and neck mass. COMPARISON: 09/27/16. FINDINGS: A left-sided transvenous pacemaker, unchanged. Normal cardiac silhouette. The pulmonary vessels and hilum are normal. Blunting of the costophrenic angle likely due to small effusion or atelectasis. Right costophrenic angles is clear. No masses or consolidation. No pneumothorax. IMPRESSION: Blunting of the left costophrenic angle likely due to small effusion or atelectasis. POS: JAQUELINE
[2016-11-10 12:51] LABS: Digoxin Less than 0.15 ng/mL (0.8-2.0)
[2016-11-10 12:53] LABS: #Basophils 0.1 thou/uL (0.0-0.2); #Eosinphils 0.3 thou/uL (0.0-0.7); #Lymphocytes 1.6 thou/uL (1.20-3.40); #Monocytes 0.7 thou/uL (0.11-0.59); #Neutrophils 3.4 thou/uL (1.40-6.50); %Basophils 1.6 % (0.0-1.0); %Eosinophils 4.9 % (0.0-10.0); %Lymphocytes 25.9 % (21.0-51.0); %Monocytes 10.7 % (0.0-10.0); Hematocrit 41.7 % (42.0-52.0); Mean Platelet Volume 7.5 fL (7.4-10.4); Red Blood Cell (RBC) Count 4.69 mill/uL (4.70-6.10)
[2016-11-10 12:54] LABS: PTT 32.7 SEC (22.9-36.1); Prothrombin Time 14.3 SEC (12.0-14.7)
[2016-11-10 12:55] LABS: ALT (SGPT) 25 U/L (0-55); AST (SGOT) 21 U/L (5-34); Alkaline Phosphatase 81 U/L (40-150); Anion Gap 12 mmol/L (10-20); BUN (Urea Nitrogen) 10 mg/dL (8.4-25.7); Bilirubin, Total 0.9 mg/dL (0.2-1.2); Calc. Creatinine Clearance 0 mL/min (70-130); Calcium 9.7 mg/dL (7.8-10.44); Carbon Dioxide 26 mmol/L (23-31); Chloride 107 mmol/L (98-107); Estimated GFR-MDRD 61; Globulin 2.7 g/dL (2.4-3.5); Protein, Total 6.5 g/dL (5.8-8.1)
--- NOTE | 2016-11-10 14:31 | CT ---
POSTCONTRAST SOFT TISSUE NECK CT: Date: 11/10/16 HISTORY: Enlarging right neck mass. COMPARISON: None. TECHNIQUE: Postcontrast soft tissue neck CT is performed in the axial plane. Sagittal and coronal reformatted i mages are submitted for interpretation. FINDINGS: Visualized brain parenchyma is unremarkable. Aerodigestive tract is patent. Definite mucosal abnormality is not appreciated. Epiglottis has a nor mal caliber. Preepiglottic fat is preserved. Midline fatty raphe of the tongue is also preserved. Pa tient is edentulous. Visualized paranasal sinuses and mastoid air cells are adequately aerated. Cervical spine vertebral body height is maintained. No fracture. Postsurgical changes involving the lower cervical spine with laminectomy defects and posterior fusion. No prevertebral soft tissue swel ling. No epidural hematoma. Varying degrees of central canal stenosis and foraminal narrowing on the basis of degenerative change. Limited evaluation by technique and beam attenuation artifact. Upper mediastinum is unremarkable. Symmetric attenuation of sternocleidomastoid muscles. Symmetric attenuation of the parotid glands, submandibular glands, and the thyroid gland. With regard to the left neck, no evidence of lymphadenopathy by size criteria. With regard to the right neck, at the level of the palpable marker, there is an enlarged heterogeneo usly enhancing mass measuring 1.6 x 2.5 cm. Mild induration of the adjacent fat. This mass is older adult social work specialist ior to the right submandibular gland and anterior to the right carotid space. Enlarged lymph node is favored. Lymphadenopathy may be reactive or possibly due to an occult neoplasm with resultant lymph node metastasis. There is extensive atherosclerotic plaque with at least short segment mild stenosis of the right car otid bifurcation and proximal internal carotid artery. Limited evaluation by technique. IMPRESSION: Right neck mass as detailed above. Enlarged lymph node is suspected. There is subtle induration of t he adjacent fat. Reactive lymph node due to infectious or inflammatory process should be considered, given rapid onset and increase in size. However, the possibility of a metastatic lymph node from a n occult head/neck cancer cannot be excluded. ENT consultation is recommended. POS: JAQUELINE
== END 2016-11-10 14:40 | disposition home or self-care (01) ==
LOC: NAV ERS 11:58
DX: R59.0 Localized enlarged lymph nodes (principal); I25.10 Atherosclerotic heart disease of native coronary artery without angina pectoris; E11.9 Type 2 diabetes mellitus without complications; E78.5 Hyperlipidemia, unspecified; E78.00 Pure hypercholesterolemia, unspecified; J44.9 Chronic obstructive pulmonary disease, unspecified; F03.90 Unspecified dementia, unspecified severity, without behavioral disturbance, psychotic disturbance, mood disturbance, and anxiety; K21.9 Gastro-esophageal reflux disease without esophagitis; I48.91 Unspecified atrial fibrillation; I50.9 Heart failure, unspecified; Z87.891 Personal history of nicotine dependence; Z79.891 Long term (current) use of opiate analgesic; Z79.2 Long term (current) use of antibiotics; Z79.899 Other long term (current) drug therapy
CPT/HCPCS: 36415; 70491; 71020; 80053; 80162; 85025; 85610; 85730

== ENCOUNTER 2016-11-22 10:04 | Outpatient (CLI) | payer MEDICARE ==
[2016-11-22 10:40] LABS: Digoxin 0.88 ng/mL (0.8-2.0)
== END 2016-11-22 10:05 | disposition home or self-care (01) ==
LOC: NAV LABSP 10:04
PROVIDERS: ATTEND Family Medicine
DX: D50.9 Iron deficiency anemia, unspecified (principal); I25.10 Atherosclerotic heart disease of native coronary artery without angina pectoris; I10 Essential (primary) hypertension
CPT/HCPCS: 80162

== ENCOUNTER 2016-11-23 08:21 | Outpatient (CLI) | payer MEDICARE ==
[2016-11-23] MEDS ORDERED: Iopamidol 370 76% 100 ML VIAL ONE (09:00)
--- NOTE | 2016-11-23 12:14 | CT ---
CT OF CHEST WITH CONTRAST: CLINICAL HISTORY: Neck malignancy. FINDINGS: There is no evidence of a lung mass or suspicious nodule. There is no effusion or pneumothorax. Th ere is mild volume loss and/or fibrosis of the pulmonary parenchyma. Superimposed mild scarring may also be present. There is evidence of coronary artery disease. There is abnormal lytic lucency wi th bone destruction centered at the left aspect of the T12-L1 vertebral segments. This involves the left lateral aspect of the disk space with associated end plate erosion. Erosion ascends the crani ocaudal extend of the left lateral aspect of T12. No thoracic adenopathy. There is chronic left sc apular fracture with exuberant callus formation and chronic-appearing fragmentation of the right sca pula. The patient is status post bilateral shoulder arthroplasty placement. IMPRESSION: Prominent area of bone destruction at the T12-L1 segments, as above. Primary considerations would i nclude lytic lesion related to metastatic disease, focal diskitis with associated osteomyelitis or p rominent degenerative change, which is not typical given the bone destruction involving the cranioca udal extent of the T12 vertebral body. Bone scan or MRI would not prove useful for further delineat ion as these findings would demonstrate similar imaging characteristics for either neoplastic or inf ectious/inflammatory process. Therefore, recommend neurosurgical consultation for further evaluatio n. POS: JAQUELINE
== END 2016-11-23 08:22 | disposition home or self-care (01) ==
LOC: NAV CT 08:21
PROVIDERS: ATTEND Specialist
DX: C76.0 Malignant neoplasm of head, face and neck (principal)
CPT/HCPCS: 36415; 71260; 82565